=== PATIENT | female | born 2000 | race Caucasian/White ===

== ENCOUNTER 2024-09-22 18:32 | Emergency (ER) | payer SELFPAY ==
[2024-09-22 18:40] VITALS: BP 127/93; PULSE 108; RESP 18; TEMP 36.5; O2SAT 97
[2024-09-22 18:45] VITALS: BP 127/93; PULSE 108; RESP 18; TEMP 36.5; O2SAT 97
== END 2024-09-22 19:15 | disposition left against medical advice (07) ==
DX: Z53.21 Procedure and treatment not carried out due to patient leaving prior to being seen by health care provider (principal)

== ENCOUNTER 2024-11-06 22:40 | Emergency (ER) | payer MEDICAID, SELFPAY ==
[2024-11-06 22:43] VITALS: PULSE 105; RESP 20; TEMP 35.9; O2SAT 98
[2024-11-06 23:00] VITALS: BP 120/72; PULSE 105; RESP 20; TEMP 35.9; O2SAT 98
--- NOTE | 2024-11-07 01:23 | W.ED.GENAD ---
Discharge Plan Disposition Patient Disposition: Eloped Discharge Details Chief Complaint: Sorethroat Clinical Impression: Acute tonsillitis, Vaginal bleeding Primary Care Provider: None,None ED Provider: Varghese Yanez Home Meds and New Rx's Prescriptions: No Action clindamycin HCl [Cleocin HCl] 300 mg capsule 600 mg PO QID Discharge Data Discharge Date/Time-TO BE ENTERED AT DEPARTURE: 11/06/24 23:36 HPI General Date/Time Provider Initiated Documentation: 11/06/24 22:43. HPI Narrative: This is a 24-year-old female with a past medical history of being a G5, P1, currently presumed to be from a test 2 to 3 months ago, previous substance abuse, previous ectopic , who presents today for sore throat and vaginal bleeding. In regards to her sore throat, she states that it has been present for the last 3 to 4 days. It is achy in nature. She has taken ibuprofen for it. She has had 1 episode of vomiting. She denies any severe fatigue otherwise though. No other complaints. When asked, she denies any previous STDs but she does admit to having oral sex 4 days ago. She is uncertain if her partner at that time had any STDs. No other complaints in regard to that. In regard to her vaginal bleeding she states that she took a test 3 months ago before she went into a rehab center. It was positive then. She has not had any period since then, however over the last few days she has had cramps and occasional clots. She denies any severe pain. She denies any other complaints at this time. Related Data Home Medications ?Medication ?Instructions ?Recorded ?Confirmed clindamycin HCl 300 mg capsule 600 mg PO QID 09/22/24 11/06/24 (Cleocin HCl) Allergies Allergy/AdvReac Type Severity Reaction Status Date / Time Penicillins Allergy Intermediate Skin Rash Verified 11/06/24 22:51 General Stated Complaint: Sorethroat NICCI: 3 Exam Narrative Exam Narrative: 1.Const: Well-nourished, Well-developed, appearing stated age 2.Eyes: PERRL, no conjunctival injection, and symmetrical lids. 3.ENT: Atraumatic external nose and ears. Moist MM. Neck: Symmetric, trachea midline, No thyromegaly. Posterior oropharynx shows enlarged tonsils, no peritonsillar abscess though. No large vesicles that I can appreciate. A small area of exudate in the back of the right tonsil. No other oral lesions. 4.CVS: +S1/S2, Peripheral pulses 2+ and equal in all extremities. Brisk capillary refill in all extremities. 5.RESP: Unlabored respiratory effort. Clear to auscultation bilaterally. No wheezes rales or rhonchi 6.GI: Soft, nondistended. No guarding or rebound. Minimal achiness in the lower pelvic region. 7.MSK: Normocephalic/Atraumatic, Extremities w/o deformity or ttp No cyanosis or clubbing, Normal movement of all extremities 8.Skin: Warm, Dry. No rashes or lesions. 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 Sensation grossly intact, no focal neurologic deficits. 10.Psych: (AAO) x3. Appropriate mood and affect Course Vital Signs Vital signs: Vital Signs Temperature 35.9 C L 11/06/24 22:43 Pulse 105 H 11/06/24 22:43 Respiratory Rate 20 11/06/24 22:43 Pulse Oximetry 98 11/06/24 22:43 Temperature 35.9 C L 11/06/24 23:00 Temperature Source Temporal Artery Scan 11/06/24 23:00 Pulse 105 H 11/06/24 23:00 Respiratory Rate 20 11/06/24 23:00 Blood Pressure 120/72 11/06/24 23:00 Blood Pressure Position Sitting 11/06/24 23:00 Pulse Oximetry 98 11/06/24 23:00 Oxygen Delivery Method Room Air 11/06/24 23:00 Oxygen Flow Rate 0 11/06/24 22:43 Pain Level 7 11/06/24 23:00 Lab/Test Results Lab/Test Results: Laboratory Tests Range/Units 11/06/24 11/06/24 23:01 23:15 WBC Cancelled RBC Cancelled Hgb Cancelled Hct Cancelled MCV Cancelled MCH Cancelled MCHC Cancelled RDW Cancelled Plt Count Cancelled MPV Cancelled Immature Gran % Cancelled Neutrophils % Cancelled Band Neutrophils % Cancelled Lymphocytes % Cancelled Atypical Lymphs % Cancelled Monocytes % Cancelled Eosinophils % Cancelled Basophils % Cancelled Metamyelocytes % Cancelled Myelocytes % Cancelled Promyelocytes % Cancelled Other Cells % Cancelled Nucleated RBC % Cancelled Absolute Neutrophils Cancelled Absolute Lymphocytes Cancelled Absolute Monocytes Cancelled Absolute Eosinophils Cancelled Absolute Basophils Cancelled RBC Morphology Cancelled Polychromasia Cancelled Hypochromasia Cancelled Poikilocytosis Cancelled Basophilic Stippling Cancelled Anisocytosis Cancelled Microcytosis Cancelled Macrocytosis Cancelled Spherocytes Cancelled Tear Drop Cells Cancelled Ovalocytes Cancelled Stomatocytes Cancelled [place] Bodies Cancelled [place] Cells/Echinocytes Cancelled Acanthocytes (Spur) Cancelled Schistocytes Cancelled Sodium Cancelled Potassium Cancelled Chloride Cancelled Carbon Dioxide Cancelled Anion Gap Cancelled BUN Cancelled Creatinine Cancelled Est GFR (CKD-EPI 2020) Cancelled Glucose Cancelled Calcium Cancelled Total Bilirubin Cancelled AST Cancelled ALT Cancelled Alkaline Phosphatase Cancelled Total Protein Cancelled Albumin Cancelled Beta HCG, Quant Cancelled HSV Source Description Cancelled HSV I DNA PCR Cancelled HSV II DNA PCR Cancelled Monoscreen Cancelled ABO/Rh Cancelled Medical Decision Making This is a 24-year-old female with a past medical history of being a G5, P1, currently presumed to be from a test 2 to 3 months ago, previous substance abuse, previous ectopic , who presents today for sore throat and vaginal bleeding. In regards to her sore throat, she states that it has been present for the last 3 to 4 days. It is achy in nature. She has taken ibuprofen for it. She has had 1 episode of vomiting. She denies any severe fatigue otherwise though. No other complaints. When asked, she denies any previous STDs but she does admit to having oral sex 4 days ago. She is uncertain if her partner at that time had any STDs. No other complaints in regard to that. In regard to her vaginal bleeding she states that she took a test 3 months ago before she went into a rehab center. It was positive then. She has not had any period since then, however over the last few days she has had cramps and occasional clots. She denies any severe pain. She denies any other complaints at this time. Physical exam of the posterior oropharynx shows enlarged tonsils, no peritonsillar abscess though. No large vesicles that I can appreciate. A small area of exudate in the back of the right tonsil. No other oral lesions. Abdominal exam demonstrates mild lower pelvic tenderness. No guarding or rebound or signs of acute surgical abdomen. Patient demonstrates a normal neurologic assessment with no evidence of confusion or altered mental status. No evidence of airway compromise. No hypoxemia. Vital signs relatively stable aside for mildly elevated heart rate. Abdominal exam with ultrasonography was technically challenging secondary to a significant amount of bowel gas, however uterus was able to be partially visualized and showed no evidence of 3-month-old fetus or intrauterine . Differential in regards to the sore throat and enlarged tonsils includes mono, strep, herpetic tonsillitis, or gonorrhea or chlamydial component. I do feel symptomatically that she would feel better with steroids with the moderate swelling, although there is no signs of airway compromise. Tonsils are not yet touching. Currently she is a 3+ to a minimal 4. We will give a dose of Decadron. We will give NSAID therapy and monitor closely. In regards to the vaginal bleeding, differential includes miscarriage, however ectopic is certainly high in the differential as well. We will get a test, and then depending on this we may need further imaging including formal ultrasonography or CT imaging. I discussed all of this with the patient, she understands and agrees. We will begin with getting an IV blood work and monitor closely and reassess. 2310: Patient eloped out of the emergency department before any interventions were performed. I am uncertain as to why she left, she did not tell nursing, she and her friend got up on their own and simply left. We had a very good conversation together a few minutes before hand, and the patient had agreed to the rest of the workup. Reason for premature departure is unclear. I made very clear to her during our initial discussion together my notable concern for the ectopic and the life-threatening components of this. She verbalized understanding at that time. Quality:SDOH Health Related Social Needs: No Data to Display PFSH All Active Problems (Updated 11/07/24 @ 01:42 by Varghese Yanez DO) Vaginal bleeding (Acute) Acute tonsillitis (Acute) Social History Smoking/Tobacco Use Status: Current every day Tobacco Type: e-cigarettes Smoking risk assessment performed?: Yes Alcohol Intake: never Drug use: Occasionally Substance use type: does not use and marijuana Housing: house Do you feel safe at home: Yes Do you feel safe in your relationship?: Yes
== END 2024-11-06 23:36 | disposition left against medical advice (07) ==
LOC: ER 23:34
PROVIDERS: Emergency Provider Student in an Organized Health Care Education/Training Program
DX: J03.90 Acute tonsillitis, unspecified (principal); N93.9 Abnormal uterine and vaginal bleeding, unspecified; Z53.29 Procedure and treatment not carried out because of patient's decision for other reasons
CPT/HCPCS: 76705; 80053; 86900; 86901; 87529; 99284; 84702; 85025; 86308; 99283